=== PATIENT | female | born 1965 | race Asian ===

== ENCOUNTER 2020-04-21 16:04 | Inpatient (IN) | payer OTHER ==
[~2020-04-21] VITALS: Ht 149.9 cm; Wt 54.9 kg
[~2020-04-21 16:04] MED LIST: ACET-784 PO; ATOR20TA86 PO; CETI-450 PO; DOCU-350 PO; FAMO20 PO; LEVO50TA11 PO; MAGN400T7 PO; OSCD250 PO; TRAM50TA4 PO
[2020-04-21 17:30] VITALS: BP 127/78
[2020-04-21] MEDS ORDERED: ALBUTEROL SULFATE HFA 90 MCG/PUFF 8 GM INHALER IH PRN (18:00)
[2020-04-21] MEDS ORDERED: BENZOCAINE/MENTHOL LOZENGE PO PRN (18:00)
[2020-04-21] MEDS: DEXAMETHASONE 2 MG TABLET NG SCH ×2 (18:44→23:53)
[2020-04-21] MEDS: LevETIRAcetam 100 MG/ML 5 ML SOLUTION UDCUP NG SCH (20:44)
[2020-04-21] MEDS: CALCIUM CARBONATE 648 MG TABLET NG SCH (20:45)
[2020-04-21] MEDS: ATORVASTATIN CALCIUM 20 MG TABLET NG SCH (20:45)
[2020-04-21] MEDS: CHOLECALCIFEROL (VIT D3) 400 UNITS [10 MCG] TABLET NG SCH (20:45)
[2020-04-21] MEDS: IPRATROPIUM BROMIDE 0.03% 21 MCG/SPRAY 30 ML NASAL SPRAY NASAL SCH (20:45)
[2020-04-21] MEDS ORDERED: DOCUSATE SODIUM 100 MG/10 ML LIQUID UDCUP NG SCH (21:00)
[2020-04-22 00:06] VITALS: BP 117/70
[2020-04-22] MEDS: LEVOTHYROXINE SODIUM 50 MCG TABLET NG SCH (05:52)
[2020-04-22 07:15] LABS: BASOPHILS % (AUTO) 0.4 % (0.0-2.0); EOSINOPHILS % (AUTO) 0 % (1.0-6.0); HEMATOCRIT 33.3 % (36-46); HEMOGLOBIN 10.1 g/dL (12.0-16.0); LYMPHOCYTES # (AUTO) 0.6 K/uL (1.0-4.8); LYMPHOCYTES % (AUTO) 2.9 % (22.0-44.0); MEAN CORPUSCULAR HEMOGLOBIN 21.9 pg (26.0-34.0); MEAN CORPUSCULAR HGB CONC 30.4 G/dL (31.0-37.0); MEAN CORPUSCULAR VOLUME 72 fL (80-100); MONOCYTES # (AUTO) 1.2 K/uL (0.1-1.0); NEUTROPHILS # (AUTO) 18.1 K/uL (1.8-7.7); PLATELET COUNT (AUTO) 214 K/uL (150-450); RED BLOOD CELL COUNT(AUTO) 4.62 MIL/uL (4.00-5.20); RED CELL DISTRIBUTION WIDTH 15.9 % (11.5-14.5)
[2020-04-22 07:21] LABS: NEUTROPHILS % (AUTO) 90.7 % (40.0-70.0)
[2020-04-22 07:48] LABS: ALANINE AMINOTRANSFERASE 96 U/L (12-78); ALBUMIN 2.6 g/dL (3.4-5.0); ALKALINE PHOSPHATASE 56 U/L (46-116); ANION GAP 8 mmol/L (8-16); ASPARTATE AMINOTRANSFERASE 32 U/L (15-37); BILIRUBIN,TOTAL 0.3 mg/dL (0.1-1.0); CARBON DIOXIDE 25 mmol/L (22-29); CHLORIDE 104 mmol/L (98-107); CREATININE 0.63 mg/dL (0.60-1.30); GLOMERULAR FILTR. RATE CALC > 60 mL/min (>60); GLUCOSE,RANDOM 145 mg/dL (70-110); POTASSIUM 4.2 mmol/L (3.5-5.1); SODIUM SERUM 137 mmol/L (136-145); TOTAL PROTEIN, SERUM 5.2 g/dL (6.4-8.2); UREA NITROGEN, BLOOD 18 mg/dL (7-18)
[2020-04-22] MEDS: CALCIUM CARBONATE 648 MG TABLET NG SCH ×2 (07:49→21:06)
[2020-04-22] MEDS: DEXAMETHASONE 2 MG TABLET NG SCH ×2 (07:49→21:05)
[2020-04-22] MEDS: LevETIRAcetam 100 MG/ML 5 ML SOLUTION UDCUP NG SCH ×2 (07:50→21:05)
[2020-04-22] MEDS: OXYBUTYNIN CHLORIDE 5 MG TABLET NG SCH (07:50)
[2020-04-22] MEDS: CHOLECALCIFEROL (VIT D3) 400 UNITS [10 MCG] TABLET NG SCH ×2 (07:50→21:05)
[2020-04-22] MEDS: LISINOPRIL 20 MG TABLET NG SCH (07:50)
[2020-04-22] MEDS: CETIRIZINE HCL 10 MG TABLET NG SCH (07:50)
[2020-04-22] MEDS: MAGNESIUM OXIDE 400 MG TABLET NG SCH (07:50)
[2020-04-22] MEDS: IPRATROPIUM BROMIDE 0.03% 21 MCG/SPRAY 30 ML NASAL SPRAY NASAL SCH ×3 (07:51→21:05)
[2020-04-22 08:00] VITALS: BP 99/55
[2020-04-22] MEDS ORDERED: DOCUSATE SODIUM 100 MG/10 ML LIQUID UDCUP PO SCH (09:00)
[2020-04-22 15:20] LABS: APPEARANCE,URINE CLEAR (CLEAR); BILIRUBIN,URINE NEGATIVE (NEGATIVE); GLUCOSE, URINE (UA) NEGATIVE (NEGATIVE); KETONES,URINE NEGATIVE (NEGATIVE); LEUKOCYTE ESTERASE ,URINE NEGATIVE (NEGATIVE); NITRATE,URINE NEGATIVE (NEGATIVE); OCCULT BLOOD,URINE NEGATIVE (NEGATIVE); PROTEIN,URINE NEGATIVE (NEGATIVE); UROBILINOGEN,URINE 0.2 mg/dL (<=1.0)
[2020-04-22 15:41] LABS: BACTERIA,URINE Rare /HPF (None Seen); RBC,URINE 0-2 /HPF (0-2); SQUAMOUS EPITHELIAL CELL,UR Few /LPF (None Seen); WBC,URINE 0-2 /HPF (0-5)
[2020-04-22 16:03] VITALS: BP 115/57
[2020-04-22] MEDS: AMINO ACIDS/PROTEIN HYDROLYS 30 ML TUBE PO SCH (17:37)
[2020-04-22] MEDS ORDERED: SENNA 187 MG TABLET PO SCH (21:00)
[2020-04-22] MEDS: SENNA 187 MG TABLET NG SCH (21:05)
[2020-04-22] MEDS: DOCUSATE SODIUM 100 MG/10 ML LIQUID UDCUP NG SCH (21:05)
[2020-04-22] MEDS: ATORVASTATIN CALCIUM 20 MG TABLET NG SCH (21:06)
[2020-04-23 04:45] VITALS: BP 103/61
[2020-04-23] MEDS: LEVOTHYROXINE SODIUM 50 MCG TABLET NG SCH (05:02)
[2020-04-23] MEDS: OXYBUTYNIN CHLORIDE 5 MG TABLET NG SCH (09:12)
[2020-04-23] MEDS: CALCIUM CARBONATE 648 MG TABLET NG SCH ×2 (09:12→20:46)
[2020-04-23] MEDS: CETIRIZINE HCL 10 MG TABLET NG SCH (09:12)
[2020-04-23] MEDS: LevETIRAcetam 100 MG/ML 5 ML SOLUTION UDCUP NG SCH ×2 (09:12→20:46)
[2020-04-23] MEDS: LISINOPRIL 20 MG TABLET NG SCH (09:12)
[2020-04-23] MEDS: DOCUSATE SODIUM 100 MG/10 ML LIQUID UDCUP NG SCH ×2 (09:12→20:46)
[2020-04-23] MEDS: IPRATROPIUM BROMIDE 0.03% 21 MCG/SPRAY 30 ML NASAL SPRAY NASAL SCH ×3 (09:12→20:47)
[2020-04-23] MEDS: DEXAMETHASONE 2 MG TABLET NG SCH ×2 (09:13→20:46)
[2020-04-23] MEDS: CHOLECALCIFEROL (VIT D3) 400 UNITS [10 MCG] TABLET NG SCH ×2 (09:13→20:46)
[2020-04-23] MEDS: MAGNESIUM OXIDE 400 MG TABLET NG SCH (09:13)
[2020-04-23 09:15] VITALS: BP 112/69
[2020-04-23] MEDS: AMINO ACIDS/PROTEIN HYDROLYS 30 ML TUBE PO SCH (17:24)
[2020-04-23 19:09] VITALS: BP 110/66
[2020-04-23] MEDS: SENNA 187 MG TABLET NG SCH (20:46)
[2020-04-23] MEDS: ATORVASTATIN CALCIUM 20 MG TABLET NG SCH (20:46)
[2020-04-24] VITALS: BP 102/52
[2020-04-24] MEDS: LEVOTHYROXINE SODIUM 50 MCG TABLET NG SCH (05:37)
[2020-04-24 08:00] VITALS: BP 124/62
[2020-04-24] MEDS: IPRATROPIUM BROMIDE 0.03% 21 MCG/SPRAY 30 ML NASAL SPRAY NASAL SCH ×3 (08:03→20:02)
[2020-04-24] MEDS: DOCUSATE SODIUM 100 MG/10 ML LIQUID UDCUP NG SCH ×2 (08:04→20:02)
[2020-04-24] MEDS: MAGNESIUM OXIDE 400 MG TABLET NG SCH (08:04)
[2020-04-24] MEDS: LevETIRAcetam 100 MG/ML 5 ML SOLUTION UDCUP NG SCH ×2 (08:04→20:03)
[2020-04-24] MEDS: OXYBUTYNIN CHLORIDE 5 MG TABLET NG SCH (08:04)
[2020-04-24] MEDS: DEXAMETHASONE 2 MG TABLET NG SCH ×2 (08:04→20:03)
[2020-04-24] MEDS: CALCIUM CARBONATE 648 MG TABLET NG SCH ×2 (08:04→20:03)
[2020-04-24] MEDS: CETIRIZINE HCL 10 MG TABLET NG SCH (08:05)
[2020-04-24] MEDS: CHOLECALCIFEROL (VIT D3) 400 UNITS [10 MCG] TABLET NG SCH ×2 (08:05→20:03)
[2020-04-24] MEDS: LISINOPRIL 20 MG TABLET NG SCH (08:05)
[2020-04-24 16:02] VITALS: BP 104/67
[2020-04-24] MEDS: ATORVASTATIN CALCIUM 20 MG TABLET NG SCH (20:03)
[2020-04-24] MEDS: SENNA 187 MG TABLET NG SCH (20:03)
[2020-04-25] MEDS: LEVOTHYROXINE SODIUM 50 MCG TABLET NG SCH (05:14)
[2020-04-25 05:18] VITALS: BP 110/71
[2020-04-25 07:58] VITALS: BP 103/69
[2020-04-25 08:30] VITALS: BP 108/67
[2020-04-25] MEDS: CALCIUM CARBONATE 648 MG TABLET NG SCH ×2 (08:38→20:41)
[2020-04-25] MEDS: OXYBUTYNIN CHLORIDE 5 MG TABLET NG SCH (08:38)
[2020-04-25] MEDS: CETIRIZINE HCL 10 MG TABLET NG SCH (08:38)
[2020-04-25] MEDS: IPRATROPIUM BROMIDE 0.03% 21 MCG/SPRAY 30 ML NASAL SPRAY NASAL SCH ×3 (08:38→20:41)
[2020-04-25] MEDS: CHOLECALCIFEROL (VIT D3) 400 UNITS [10 MCG] TABLET NG SCH ×2 (08:38→20:41)
[2020-04-25] MEDS: DOCUSATE SODIUM 100 MG/10 ML LIQUID UDCUP NG SCH ×2 (08:38→20:41)
[2020-04-25] MEDS: MAGNESIUM OXIDE 400 MG TABLET NG SCH (08:38)
[2020-04-25] MEDS: LevETIRAcetam 100 MG/ML 5 ML SOLUTION UDCUP NG SCH ×2 (08:38→20:41)
[2020-04-25] MEDS: LISINOPRIL 20 MG TABLET NG SCH (09:00)
[2020-04-25] MEDS: DEXAMETHASONE 2 MG TABLET NG SCH (09:25)
[2020-04-25 10:41] VITALS: BP 102/57
[2020-04-25 16:12] VITALS: BP 96/51
[2020-04-25] MEDS: SENNA 187 MG TABLET NG SCH (20:41)
[2020-04-25] MEDS: ATORVASTATIN CALCIUM 20 MG TABLET NG SCH (20:41)
[2020-04-26 00:33] VITALS: BP 99/65
[2020-04-26] MEDS: LEVOTHYROXINE SODIUM 50 MCG TABLET NG SCH (05:26)
[2020-04-26 08:05] VITALS: BP 97/62
[2020-04-26] MEDS: CHOLECALCIFEROL (VIT D3) 400 UNITS [10 MCG] TABLET NG SCH ×2 (08:20→20:59)
[2020-04-26] MEDS: LevETIRAcetam 100 MG/ML 5 ML SOLUTION UDCUP NG SCH ×2 (08:20→20:59)
[2020-04-26] MEDS: DEXAMETHASONE 2 MG TABLET NG SCH (08:20)
[2020-04-26] MEDS: CALCIUM CARBONATE 648 MG TABLET NG SCH ×2 (08:20→20:59)
[2020-04-26] MEDS: OXYBUTYNIN CHLORIDE 5 MG TABLET NG SCH (08:20)
[2020-04-26] MEDS: IPRATROPIUM BROMIDE 0.03% 21 MCG/SPRAY 30 ML NASAL SPRAY NASAL SCH ×3 (08:20→20:59)
[2020-04-26] MEDS: DOCUSATE SODIUM 100 MG/10 ML LIQUID UDCUP NG SCH ×2 (08:20→20:59)
[2020-04-26] MEDS: LISINOPRIL 20 MG TABLET NG SCH (08:20)
[2020-04-26] MEDS: MAGNESIUM OXIDE 400 MG TABLET NG SCH (08:20)
[2020-04-26] MEDS: CETIRIZINE HCL 10 MG TABLET NG SCH (08:21)
[2020-04-26 17:18] VITALS: BP 118/66
[2020-04-26] MEDS: SENNA 187 MG TABLET NG SCH (20:59)
[2020-04-26] MEDS: ATORVASTATIN CALCIUM 20 MG TABLET NG SCH (20:59)
[2020-04-27 01:01] VITALS: BP 117/72
[2020-04-27] MEDS: LEVOTHYROXINE SODIUM 50 MCG TABLET NG SCH (05:27)
[2020-04-27] MEDS: CALCIUM CARBONATE 648 MG TABLET NG SCH ×2 (08:22→20:19)
[2020-04-27] MEDS: OXYBUTYNIN CHLORIDE 5 MG TABLET NG SCH (08:22)
[2020-04-27] MEDS: IPRATROPIUM BROMIDE 0.03% 21 MCG/SPRAY 30 ML NASAL SPRAY NASAL SCH ×3 (08:22→20:21)
[2020-04-27] MEDS: LevETIRAcetam 100 MG/ML 5 ML SOLUTION UDCUP NG SCH ×2 (08:22→20:18)
[2020-04-27] MEDS: LISINOPRIL 20 MG TABLET NG SCH (08:22)
[2020-04-27] MEDS: CHOLECALCIFEROL (VIT D3) 400 UNITS [10 MCG] TABLET NG SCH ×2 (08:22→20:19)
[2020-04-27] MEDS: CETIRIZINE HCL 10 MG TABLET NG SCH (08:22)
[2020-04-27] MEDS: MAGNESIUM OXIDE 400 MG TABLET NG SCH (08:22)
[2020-04-27] MEDS: DOCUSATE SODIUM 100 MG/10 ML LIQUID UDCUP NG SCH ×2 (08:22→20:18)
[2020-04-27 08:45] VITALS: BP 110/70
[2020-04-27 15:12] VITALS: BP 98/54
[2020-04-27] MEDS: SENNA 187 MG TABLET NG SCH (20:19)
[2020-04-27] MEDS: OXYBUTYNIN CHLORIDE 5 MG ER TABLET PO SCH (20:19)
[2020-04-27] MEDS: ATORVASTATIN CALCIUM 20 MG TABLET NG SCH (20:19)
[2020-04-27 23:45] VITALS: BP 110/69
[2020-04-28] VITALS (14 sets, daily range): BP systolic 86–141; BP diastolic 49–80
[2020-04-28] MEDS: MELATONIN 5 MG TABLET PO PRN ×2 (00:57→21:15)
[2020-04-28] MEDS: LEVOTHYROXINE SODIUM 50 MCG TABLET NG SCH (05:58)
[2020-04-28] MEDS: ACETAMINOPHEN 325 MG TABLET PO PRN ×2 (06:59→22:16)
[2020-04-28 07:07] LABS: BASOPHILS % (AUTO) 0.2 % (0.0-2.0); EOSINOPHILS % (AUTO) 1.2 % (1.0-6.0); HEMATOCRIT 30.9 % (36-46); HEMOGLOBIN 9.6 g/dL (12.0-16.0); LYMPHOCYTES # (AUTO) 0.5 K/uL (1.0-4.8); LYMPHOCYTES % (AUTO) 4.5 % (22.0-44.0); MEAN CORPUSCULAR HEMOGLOBIN 22.3 pg (26.0-34.0); MEAN CORPUSCULAR HGB CONC 31.1 G/dL (31.0-37.0); MEAN CORPUSCULAR VOLUME 72 fL (80-100); MONOCYTES # (AUTO) 0.9 K/uL (0.1-1.0); MONOCYTES % (AUTO) 7.7 % (2.0-9.0); NEUTROPHILS # (AUTO) 10.6 K/uL (1.8-7.7); PLATELET COUNT (AUTO) 150 K/uL (150-450); RED CELL DISTRIBUTION WIDTH 20.3 % (11.5-14.5)
[2020-04-28 07:10] LABS: NEUTROPHILS % (AUTO) 86.4 % (40.0-70.0)
[2020-04-28 07:23] LABS: ANION GAP 7 mmol/L (8-16); CALCIUM, TOTAL 8.1 mg/dL (8.8-10.5); CARBON DIOXIDE 27 mmol/L (22-29); CHLORIDE 109 mmol/L (98-107); CREATININE 0.54 mg/dL (0.60-1.30); GLOMERULAR FILTR. RATE CALC > 60 mL/min (>60); GLUCOSE,RANDOM 92 mg/dL (70-110); POTASSIUM 3.7 mmol/L (3.5-5.1); SODIUM SERUM 143 mmol/L (136-145); UREA NITROGEN, BLOOD 11 mg/dL (7-18)
[2020-04-28] MEDS: MAGNESIUM OXIDE 400 MG TABLET NG SCH (08:02)
[2020-04-28] MEDS: CETIRIZINE HCL 10 MG TABLET NG SCH (08:03)
[2020-04-28] MEDS: DOCUSATE SODIUM 100 MG/10 ML LIQUID UDCUP NG SCH ×2 (08:03→21:15)
[2020-04-28] MEDS: CHOLECALCIFEROL (VIT D3) 400 UNITS [10 MCG] TABLET NG SCH ×2 (08:03→21:15)
[2020-04-28] MEDS: CALCIUM CARBONATE 648 MG TABLET NG SCH ×2 (08:03→21:15)
[2020-04-28] MEDS: LISINOPRIL 20 MG TABLET NG SCH (08:03)
[2020-04-28] MEDS: IPRATROPIUM BROMIDE 0.03% 21 MCG/SPRAY 30 ML NASAL SPRAY NASAL SCH ×3 (08:04→21:16)
[2020-04-28] MEDS: LevETIRAcetam 100 MG/ML 5 ML SOLUTION UDCUP NG SCH ×2 (08:04→21:15)
[2020-04-28] MEDS ORDERED: ERGOCALCIFEROL (VIT D2) 50,000 UNITS [1,250 MCG] CAPSULE NG SCH (09:00)
[2020-04-28] MEDS ORDERED: SODIUM CHLORIDE 0.9% 500 ML IV ONE (09:45)
[2020-04-28 10:50] LABS: GLUCOMETER DEV NAME(LOC) 2WR.2B; GLUCOSE,POINT OF CARE 108 MG/DL (70-110)
[2020-04-28 12:06] LABS: BILIRUBIN,URINE NEGATIVE (NEGATIVE); GLUCOSE, URINE (UA) NEGATIVE (NEGATIVE); KETONES,URINE NEGATIVE (NEGATIVE); LEUKOCYTE ESTERASE ,URINE NEGATIVE (NEGATIVE); NITRATE,URINE NEGATIVE (NEGATIVE); OCCULT BLOOD,URINE NEGATIVE (NEGATIVE); PROTEIN,URINE NEGATIVE (NEGATIVE); UROBILINOGEN,URINE 0.2 mg/dL (<=1.0)
[2020-04-28 12:09] LABS: APPEARANCE,URINE CLEAR (CLEAR)
[2020-04-28] MEDS: OXYBUTYNIN CHLORIDE 5 MG ER TABLET PO SCH (21:15)
[2020-04-28] MEDS: ATORVASTATIN CALCIUM 20 MG TABLET NG SCH (21:15)
[2020-04-28] MEDS: SENNA 187 MG TABLET NG SCH (21:15)
[2020-04-29 02:24] VITALS: BP 115/70
[2020-04-29 03:45] VITALS: BP 115/70
[2020-04-29] MEDS: ACETAMINOPHEN 325 MG TABLET PO PRN ×2 (05:57→22:04)
[2020-04-29] MEDS: LEVOTHYROXINE SODIUM 50 MCG TABLET NG SCH (05:57)
[2020-04-29] MEDS: LevETIRAcetam 100 MG/ML 5 ML SOLUTION UDCUP NG SCH ×2 (08:11→21:26)
[2020-04-29] MEDS: CHOLECALCIFEROL (VIT D3) 400 UNITS [10 MCG] TABLET NG SCH ×2 (08:11→21:26)
[2020-04-29] MEDS: DOCUSATE SODIUM 100 MG/10 ML LIQUID UDCUP NG SCH ×2 (08:11→21:26)
[2020-04-29] MEDS: MAGNESIUM OXIDE 400 MG TABLET NG SCH (08:11)
[2020-04-29] MEDS: CALCIUM CARBONATE 648 MG TABLET NG SCH ×2 (08:11→21:26)
[2020-04-29] MEDS: CETIRIZINE HCL 10 MG TABLET NG SCH (08:11)
[2020-04-29] MEDS: LISINOPRIL 20 MG TABLET NG SCH (08:15)
[2020-04-29] MEDS: IPRATROPIUM BROMIDE 0.03% 21 MCG/SPRAY 30 ML NASAL SPRAY NASAL SCH ×3 (08:15→21:27)
[2020-04-29 08:23] VITALS: BP 90/57
[2020-04-29 10:06] VITALS: BP 102/58
[2020-04-29] MEDS: CEPHALEXIN MONOHYDRATE 500 MG CAPSULE PO SCH ×3 (12:25→21:26)
[2020-04-29 18:09] VITALS: BP 109/71
[2020-04-29] MEDS: SENNA 187 MG TABLET NG SCH (21:26)
[2020-04-29] MEDS: ATORVASTATIN CALCIUM 20 MG TABLET NG SCH (21:26)
[2020-04-29] MEDS: OXYBUTYNIN CHLORIDE 5 MG ER TABLET PO SCH (21:26)
[2020-04-29] MEDS: MELATONIN 5 MG TABLET PO PRN (21:26)
[2020-04-30] VITALS: BP 106/61
[2020-04-30 01:43] VITALS: BP 106/61
[2020-04-30] MEDS: LEVOTHYROXINE SODIUM 50 MCG TABLET NG SCH (05:29)
[2020-04-30] MEDS: DOCUSATE SODIUM 100 MG/10 ML LIQUID UDCUP NG SCH (07:50)
[2020-04-30] MEDS: LevETIRAcetam 100 MG/ML 5 ML SOLUTION UDCUP NG SCH (07:50)
[2020-04-30] MEDS: CALCIUM CARBONATE 648 MG TABLET NG SCH (07:50)
[2020-04-30] MEDS: CHOLECALCIFEROL (VIT D3) 400 UNITS [10 MCG] TABLET NG SCH (07:50)
[2020-04-30] MEDS: CEPHALEXIN MONOHYDRATE 500 MG CAPSULE PO SCH ×2 (07:50→12:43)
[2020-04-30] MEDS: MAGNESIUM OXIDE 400 MG TABLET NG SCH (07:51)
[2020-04-30] MEDS: CETIRIZINE HCL 10 MG TABLET NG SCH (07:51)
[2020-04-30] MEDS: LISINOPRIL 20 MG TABLET NG SCH (07:51)
[2020-04-30] MEDS: IPRATROPIUM BROMIDE 0.03% 21 MCG/SPRAY 30 ML NASAL SPRAY NASAL SCH (07:56)
[2020-04-30 08:00] VITALS: BP 118/70
[2020-04-30] MEDS: ACETAMINOPHEN 325 MG TABLET PO PRN (11:41)
[2020-04-30 11:54] VITALS: BP 118/72
[2020-04-30 11:59] LABS: BASOPHILS % (AUTO) 0.6 % (0.0-2.0); EOSINOPHILS % (AUTO) 0.6 % (1.0-6.0); HEMOGLOBIN 9.5 g/dL (12.0-16.0); LYMPHOCYTES # (AUTO) 0.4 K/uL (1.0-4.8); LYMPHOCYTES % (AUTO) 3.9 % (22.0-44.0); MEAN CORPUSCULAR HEMOGLOBIN 21.9 pg (26.0-34.0); MEAN CORPUSCULAR HGB CONC 30.5 G/dL (31.0-37.0); MEAN CORPUSCULAR VOLUME 72 fL (80-100); MONOCYTES # (AUTO) 0.8 K/uL (0.1-1.0); MONOCYTES % (AUTO) 7.4 % (2.0-9.0); NEUTROPHILS # (AUTO) 9.6 K/uL (1.8-7.7); PLATELET COUNT (AUTO) 180 K/uL (150-450); RED BLOOD CELL COUNT(AUTO) 4.31 MIL/uL (4.00-5.20); RED CELL DISTRIBUTION WIDTH 20.3 % (11.5-14.5)
[2020-04-30 12:03] LABS: NEUTROPHILS % (AUTO) 87.5 % (40.0-70.0)
[2020-04-30 13:10] LABS: ERYTHROCYTE SEDIMENTATION RATE 60 MM/HR (0-20)
[2020-04-30 13:25] VITALS: BP 106/72
[2020-04-30] MEDS ORDERED: AMINO ACIDS/PROTEIN HYDROLYS 30 ML TUBE PO SCH (17:00)
== END 2020-04-30 13:40 | disposition designated cancer center or children's hospital (05) | DRG 55 ==
LOC: 2WR 17:10
PROVIDERS: ADMIT Physical Medicine & Rehabilitation; ATTEND Physical Medicine & Rehabilitation
DX: D32.9 Benign neoplasm of meninges, unspecified (principal); G81.94 Hemiplegia, unspecified affecting left nondominant side; E46 Unspecified protein-calorie malnutrition; R13.10 Dysphagia, unspecified; I10 Essential (primary) hypertension; M54.9 Dorsalgia, unspecified; Z98.890 Other specified postprocedural states; D64.9 Anemia, unspecified; E78.5 Hyperlipidemia, unspecified; E03.9 Hypothyroidism, unspecified
CPT/HCPCS: 74018; 74230; 84145; 85651; 86140; 87040; 87081; 92507; 92523; 92526; 92611; 93970; 97110; 97112; 97116; 97163; 97167; 97530; 97535; 99366; A9575; G0238; J8540; 36415-L1; 36415-TC; 71045-TC; 81003-TC; Z7610